=== PATIENT | male | born 1985 | race Caucasian/White ===

== ENCOUNTER 2017-03-02 09:57 | Emergency (ER) | payer BC ==
[~2017-03-02] VITALS: Ht 170.2 cm; Wt 90.0 kg
[2017-03-02 10:03] VITALS: Ht 170.2 cm; Wt 90.0 kg
--- NOTE | 2017-03-02 11:51 | RADRPT ---
PROCEDURE: Chest x-ray CLINICAL INDICATION: Chest pain TECHNIQUE: Chest single view COMPARISON: None FINDINGS: The heart is normal in size. The pulmonary vessels are normal in caliber. The lungs are clear. Th e costophrenic angles are sharp. The visualized bony thorax is unremarkable. IMPRESSION: No acute cardiopulmonary disease. RPTAT: HH .Bereket Pratt MD, Date Time Electronically viewed and signed by .Bereket Pratt MD, MD on 03/02/2017 11:51 .W/
--- NOTE | 2017-03-02 11:57 | ERD ---
ER Documentation Chief Complaint Chief Complaint CWP X 2 DAYS, PAIN CHANGES WITH BREATHING HPI 31-year-old male presents to the emergency department with mild 3 out of 10 localized nonradiating left-sided chest pain that is constant for the past 3 days increased with certain movements and breathing. Patient denies fevers, palpitations, shortness of breath. Denies taking any medications for this. ROS All systems reviewed and are negative except as per history of present illness. Physical Exam Vitals Vital Signs Date Time Temp Pulse Resp B/P Pulse Ox O2 Delivery O2 Flow Rate FiO2 03/02/17 10:03 98.1 80 18 140/91 99 Physical Exam Const: [] Head: Atraumatic Eyes: Normal Conjunctiva ENT: Normal External Ears, Nose and Mouth. Neck: Full range of motion..~ No meningismus. Resp: Clear to auscultation bilaterally Cardio: Regular rate and rhythm, no murmurs Abd: Soft, non tender, non distended. Normal bowel sounds Skin: No petechiae or rashes Back: No midline or flank tenderness Ext: No cyanosis, or edema Neur: Awake and alert Psych: Normal Mood and Affect Procedures/MDM Well-appearing 31-year-old male presents complaining of left-sided nonradiating chest pain for the past 3 days, likely noncardiac. Low suspicion for ACS or other acute cardiopulmonary conditions. Chest x-ray did not show any evidence of infiltrates, pneumothorax or pleural effusion. EKG did not show any evidence of STEMI. I discussed with patient to follow-up with primary care physician for cardio referral. Discussed return to the ER for any worsening signs or symptoms EKG: read and signed off by myself and Ostick Rate/Rhythm: [Normal Sinus Rhythm 75bpm] QRS, ST, T-waves: [No changes consistent w/ acute ischemia] Impression: [No evidence of ischemia or arrhythmia] Departure Diagnosis: Primary Impression: Chest pain Condition: Stable Patient Instructions: Chest Pain, Noncardiac , Chest Pain, Uncertain Cause Referrals: [facility] YOU HAVE RECEIVED A MEDICAL SCREENING EXAM AND THE RESULTS INDICATE THAT YOU DO NOT HAVE A CONDITION THAT REQUIRES URGENT TREATMENT IN THE EMERGENCY DEPARTMENT. FURTHER EVALUATION AND TREATMENT OF YOUR CONDITION CAN WAIT UNTIL YOU ARE SEEN IN YOUR DOCTORS OFFICE WITHIN THE NEXT 1-2 DAYS. IT IS YOUR RESPONSIBILITY TO MAKE AN APPOINTMENT FOR FOLOW-UP CARE. IF YOU HAVE A PRIMARY DOCTOR --you should call your primary doctor and schedule an appointment IF YOU DO NOT HAVE A PRIMARY DOCTOR YOU CAN CALL OUR PHYSICIAN REFERRAL HOTLINE AT IF YOU CAN NOT AFFORD TO SEE A PHYSICIAN YOU CAN CHOSE FROM THE FOLLOWING [facility] [address] [facility] [address] [facility] [address] [facility] [address] [facility] [address] [facility]. [facility]. [address] BONITA FLORENCE PA-C Mar 02, 2017 11:57
== END 2017-03-02 12:33 | disposition home or self-care (01) ==
LOC: FTE 09:57
DX: R07.89 Other chest pain (principal)
CPT/HCPCS: 71010; 93005